=== PATIENT | male | born 1945 | race Caucasian/White ===

== ENCOUNTER 2019-05-06 09:34 | Outpatient (CLI) | payer OTHER ==
[~2019-05-06 09:34] MED LIST: ACET-2119 PO; LYR75C PO; PANT-47 PO; ZOLP10TA5 PO
== END 2019-05-06 23:59 | disposition home or self-care (01) ==
LOC: CARD DIAG 09:34
PROVIDERS: ATTEND Orthopaedic Surgery
DX: I08.8 Other rheumatic multiple valve diseases (principal); I25.10 Atherosclerotic heart disease of native coronary artery without angina pectoris; I10 Essential (primary) hypertension; E78.5 Hyperlipidemia, unspecified
CPT/HCPCS: 93306

== ENCOUNTER 2020-05-11 13:05 | Outpatient (CLI) | payer OTHER | END 2020-05-11 23:59 | disposition home or self-care (01) | LOC: CARD DIAG 13:05 | PROVIDERS: ATTEND Orthopaedic Surgery | DX: I08.8 Other rheumatic multiple valve diseases (principal); I25.10 Atherosclerotic heart disease of native coronary artery without angina pectoris | CPT/HCPCS: 93306 ==